=== PATIENT | female | born 2000 | race Caucasian/White ===

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

== ENCOUNTER 2019-08-01 08:00 | Outpatient (CLI) | payer MEDICAID | END 2019-08-01 23:59 | disposition home or self-care (01) | LOC: LAB.R 08:00 | PROVIDERS: ATTEND Registered Nurse | DX: R39.15 Urgency of urination (principal) | CPT/HCPCS: 87077; 87086; 87181 ==

== ENCOUNTER 2019-08-08 08:00 | Outpatient (CLI) | payer MEDICAID | END 2019-08-08 23:59 | disposition home or self-care (01) | LOC: LAB.R 08:00 | PROVIDERS: ATTEND Registered Nurse | DX: R39.15 Urgency of urination (principal) | CPT/HCPCS: 87086 ==

== ENCOUNTER 2022-07-11 13:54 | Outpatient (CLI) | payer MEDICAID | END 2022-07-11 13:55 | disposition home or self-care (01) | LOC: LAB.S 13:54 | PROVIDERS: ATTEND Psychiatry & Neurology Neurology | DX: G40.909 Epilepsy, unspecified, not intractable, without status epilepticus (principal) | CPT/HCPCS: 80177 ==

== ENCOUNTER 2022-08-08 08:14 | Outpatient (CLI) | payer MEDICAID | END 2022-08-08 08:15 | disposition EMS.NT | LOC: EMS 08:14 | DX: R56.9 Unspecified convulsions (principal) ==

== ENCOUNTER 2022-09-26 13:17 | Outpatient (CLI) | payer MEDICAID | END 2022-09-26 13:18 | disposition home or self-care (01) | LOC: LAB.S 13:17 | PROVIDERS: ATTEND Psychiatry & Neurology Neurology | DX: G40.909 Epilepsy, unspecified, not intractable, without status epilepticus (principal) | CPT/HCPCS: 36415; 80177 ==

== ENCOUNTER 2022-10-30 10:00 | Outpatient (CLI) | payer MEDICAID | END 2022-10-30 10:01 | disposition home or self-care (01) | LOC: LAB.S 10:00 | PROVIDERS: ATTEND Psychiatry & Neurology Neurology | DX: G40.909 Epilepsy, unspecified, not intractable, without status epilepticus (principal) | CPT/HCPCS: 36415; 80177 ==

== ENCOUNTER 2023-05-22 07:00 | Outpatient (CLI) | payer MEDICAID | END 2023-05-22 23:59 | disposition home or self-care (01) | LOC: LAB.S 07:00 | PROVIDERS: ATTEND Physician Assistant | DX: N39.0 Urinary tract infection, site not specified (principal) | CPT/HCPCS: 87086 ==

== ENCOUNTER 2023-06-03 23:31 | Emergency (ER) | payer MEDICAID ==
[2023-06-04 00:28] LABS: MUDS CUTOFF CONCENTRATIONS CUTOFF CONC BELOW:
[2023-06-04 00:29] LABS: BILIRUBIN,URINE NEGATIVE (NEGATIVE); GLUCOSE, URINE (UA) NEGATIVE (NEGATIVE); KETONES,URINE (UA) NEGATIVE (NEGATIVE); LEUKOCYTE ESTERASE, URINE NEGATIVE (NEGATIVE); NITRITE,URINE NEGATIVE (NEGATIVE); OCCULT BLOOD,URINE TRACE-INTA (NEGATIVE); PROTEIN,URINE NEGATIVE (NEGATIVE); UROBILINOGEN,URINE 0.2 (NORMAL) E.U./dL (NORMAL)
[2023-06-04] MEDS ORDERED: SODIUM CHLORIDE 0.9% 1,000 ML IV STA (00:33)
[2023-06-04 00:40] LABS: VBG BASE EXCESS -4.2 mmol/L (-2 - +2); VBG HCO3 19.6 mmol/L (23-28); VBG OXYGEN SATURATION 93.1 % (60-80); VBG PCO2 32.9 mmHg (41-51); VBG PH 7.394 (7.31-7.41); VBG TOTAL CO2 20.7 mmol/L (24-29)
[2023-06-04 00:41] LABS: CLARITY,URINE CLEAR (CLEAR); HCG UR QUAL NEGATIVE
[2023-06-04 00:42] LABS: INR 1.2 (0.8-1.2); PT - PROTHROMBIN TIME 12.7 secs (9.9-12.6)
[2023-06-04 00:43] LABS: BASOPHILS % (AUTO) 0.4 %; HCT - HEMATOCRIT 42.3 % (37.0-47.0); HGB - HEMOGLOBIN 13.8 g/dL (12.0-16.0); LYMPHOCYTES # (AUTO) 0.5 10^3/uL (1.5-3.5); LYMPHOCYTES % (AUTO) 11.4 %; MEAN CORPUSCULAR HEMOGLOBIN 27.4 pg (27.0-31.0); MEAN CORPUSCULAR HGB CONC 32.6 g/dL (32.0-36.0); MEAN CORPUSCULAR VOLUME 83.9 fL (81.0-99.0); MEAN PLATELET VOLUME 9.5 fL (7.9-10.8); MONOCYTES # (AUTO) 0.3 10^3/uL (0.0-1.0); MONOCYTES % (AUTO) 7.4 %; NEUTROPHILS # (AUTO) 3.6 10^3/uL (1.5-6.6); NEUTROPHILS % (AUTO) 80.4 %; PLT - PLATELET COUNT 182 10^3/uL (130-450); RED BLOOD COUNT 5.04 10^6/uL (4.20-5.40); RED CELL DISTRIBUTION WIDTH 12.7 % (12.0-15.0); WHITE BLOOD COUNT 4.5 x10^3/uL (4.8-10.8)
[2023-06-04 00:44] LABS: AMPHETAMINE SCREEN,URINE NEGATIVE (NEGATIVE); BARBITURATE SCREEN,UR NEGATIVE (NEGATIVE); BENZODIAZEPINES SCREEN, URINE NEGATIVE (NEGATIVE); COCAINE SCREEN URINE NEGATIVE (NEGATIVE); METHADONE SCREEN, URINE NEGATIVE (NEGATIVE); METHAMPHETAMINES SCREEN, URINE NEGATIVE (NEGATIVE); OPIATE SCREEN, URINE NEGATIVE (NEGATIVE); OXYCODONE SCREEN, URINE NEGATIVE (NEGATIVE); PROPOXYPHENE SCREEN, URINE NEGATIVE (NEGATIVE); THC CANNABINOID SCREEN, URINE POSITIVE (NEGATIVE); TRICYCLIC ANTIDEPRESSANT,URINE NEGATIVE (NEGATIVE)
[2023-06-04 00:55] LABS: ALBUMIN 4.2 g/dL (3.2-5.5); ALBUMIN/GLOBULIN RATIO 1.4 (1.0-2.2); ALKALINE PHOSPHATASE 64 IU/L (42-121); ALT ALANINE AMINOTRANSFERASE 19 IU/L (10-60); AST ASPARTATE AMINOTRANSFERASE 25 IU/L (10-42); BILIRUBIN,TOTAL 0.3 mg/dL (0.2-1.0); BUN - BLOOD UREA NITROGEN 6 mg/dL (6-20); CALCIUM 9.1 mg/dL (8.5-10.3); CARBON DIOXIDE - CO2 23 mmol/L (21-32); CHLORIDE 105 mmol/L (101-111); CREATININE 0.5 mg/dL (0.6-1.3); ETOH - ETHANOL < 10.0 mg/dL; GFR - MDRD 153 (>89); GLUCOSE 126 mg/dL (74-104); LIPASE 62 U/L (11-82); MAGNESIUM 1.7 mg/dL (1.7-2.3); POTASSIUM 3.6 mmol/L (3.5-4.5); SODIUM 135 mmol/L (135-145); TOTAL PROTEIN 7.2 g/dL (6.4-8.9)
--- NOTE | 2023-06-04 01:30 | ED Physician Documentation ---
History of Present Illness - Stated complaint Stated Complaint: EXTREMITIES TINGLING/BACK PX/FEVER - Chief complaint Chief Complaint: Back Pain - Additonal information Additional information: Patient 22-year-old female presenting to the emergency department with fever, back pain, numbness tingling in her upper extremities. Past medical significant for cerebral palsy. Recently treated for urinary tract infection and reports that her symptoms of dysuria and frequency have resolved. Has been having symptoms of low back pain with tingling in her fingers and toes and face x1 day. Temperature high 104 at home. No cough, congestion or known sick contacts. Denies chest or abdominal pain. Denies saddle paresthesias, loss of bowel or bladder control. Reports chronic decreased sensation around the right side of her body unchanged from baseline. Review of Systems Constitutional: reports: Fever Eyes: denies: Loss of vision Ears: denies: Loss of hearing Nose: denies: Rhinorrhea / runny nose Throat: denies: Dental pain / toothache Cardiac: denies: Chest pain / pressure Respiratory: denies: Dyspnea GI: denies: Abdominal Pain : denies: Dysuria Skin: denies: Rash Musculoskeletal: reports: Back pain Neurologic: reports: Numbness PD PAST MEDICAL HISTORY - Past Medical History Past Medical History: Yes Neuro: Cerebral palsy, Seizure disorder - Past Surgical History Past Surgical History: Yes - Present Medications Home Medications: Ambulatory Orders Medication Instructions Recorded Confirmed Escitalopram [Lexapro] 10 mg PO DAILY 06/04/23 06/04/23 Levetiracetam [Keppra] 1,500 mg PO DAILY 06/04/23 06/04/23 - Allergies Allergies/Adverse Reactions: Allergies Allergy/AdvReac Type Severity Reaction Status Date / Time azithromycin [From Zithromax] Allergy Rash Verified 06/03/23 23:45 - Social History Does the pt smoke?: No Smoking Status: Never smoker Does the pt drink ETOH?: No - Immunizations Immunizations are current?: Yes - POLST Patient has POLST: No PD ED PE NORMAL - Vitals Vital signs reviewed: Yes (Tachycardic) - General General: Alert and oriented X 3 - HEENT HEENT: Atraumatic, PERRL, EOMI, Ears normal, Moist mucous membranes, Pharynx benign - Neck Neck: Supple, no meningeal sign, No bony TTP, No adenopathy, Thyroid normal, No JVD, No bruit, C-Spine cleared by NEXUS criteria - Cardiac Cardiac: RRR, No murmur, No gallop, No rub - Respiratory Respiratory: No respiratory distress - Abdomen Abdomen: Normal bowel sounds - Female Female : Deferred - Rectal Rectal: Deferred - Back Back: Other (Tenderness to the lumbar paraspinal muscles.) - Derm Derm: Normal color - Extremities Extremities: No deformity - Neuro Neuro: Alert and oriented X 3, clearance coordinator 2-12 intact, Normal speech. No: No motor deficit, No sensory deficit Results - Vitals Vitals: Vital Signs - 24 hr 06/03/23 06/04/23 06/04/23 23:40 00:37 01:40 Temperature 37.3 C 36.8 C Heart Rate 124 H 87 75 Respiratory 18 21 15 Rate Blood Pressure 138/75 H 117/82 H 119/69 O2 Saturation 97 99 97 06/04/23 03:01 Temperature 36.9 C Heart Rate 85 Respiratory 20 Rate Blood Pressure 105/69 O2 Saturation 98 Oxygen O2 Source Room air - EKG (time done) 0000 EKG releavant findings:: EKG personally interpreted by author of this note. Relevant findings are: Sinus rhythm with rate 94 bpm. Normal axis. Normal CA, QRS, QTc intervals. No ST segment elevations or T wave inversions. - Labs Labs: Laboratory Tests 06/03/23 06/03/23 06/04/23 23:55 23:55 00:21 WBC 4.5 L RBC 5.04 Hgb 13.8 Hct 42.3 MCV 83.9 MCH 27.4 MCHC 32.6 RDW 12.7 Plt Count 182 MPV 9.5 Neut # (Auto) 3.6 Lymph # (Auto) 0.5 L [place] # (Auto) 0.3 Eos # (Auto) 0.0 Baso # (Auto) 0.0 Absolute Nucleated RBC 0.00 Nucleated RBC % 0.0 ESR PT INR VBG pH VBG pCO2 VBG pO2 VBG HCO3 VBG Total CO2 VBG O2 Saturation VBG Base Excess Sodium Potassium Chloride Carbon Dioxide Anion Gap BUN Creatinine Estimated GFR (MDRD) Glucose Lactic Acid Calcium Magnesium Total Bilirubin AST ALT Alkaline Phosphatase Total Protein Albumin Globulin Albumin/Globulin Ratio Lipase Urine Color YELLOW Urine Clarity CLEAR Urine pH 7.0 Ur Specific [place] <=1.005 Urine Protein NEGATIVE Urine Glucose (UA) NEGATIVE Urine Ketones NEGATIVE Urine Occult Blood TRACE-INTA Urine Nitrite NEGATIVE Urine Bilirubin NEGATIVE Urine Urobilinogen 0.2 (NORMAL) Ur Leukocyte Esterase NEGATIVE Ur Microscopic Review NOT INDICATED Urine Culture Comments NOT INDICATED Urine HCG, Qual NEGATIVE Nasal Adenovirus (PCR) NOT DETECTED Nasal B. parapertussis DNA (PCR) NOT DETECTED Nasal Coronavir 229E PCR NOT DETECTED Nasal Coronavir HKU1 PCR NOT DETECTED Nasal Coronavir NL63 PCR NOT DETECTED Nasal Coronavir OC43 PCR NOT DETECTED Nasal Enterovir/Rhinovir PCR NOT DETECTED Nasal Influenza B PCR NOT DETECTED Nasal Influenza A PCR NOT DETECTED Nasal Parainfluen 1 PCR NOT DETECTED Nasal Parainfluen 2 PCR NOT DETECTED Nasal Parainfluen 3 PCR NOT DETECTED Nasal Parainfluen 4 PCR NOT DETECTED Nasal RSV (PCR) NOT DETECTED Nasal B.pertussis DNA PCR NOT DETECTED Nasal C.pneumoniae (PCR) NOT DETECTED Iron Human Metapneumo PCR NOT DETECTED Nasal M.pneumoniae (PCR) NOT DETECTED Nasal SARS-CoV-2 (PCR) NOT DETECTED Urine Opiates Screen NEGATIVE Ur Oxycodone Screen NEGATIVE Urine Methadone Screen NEGATIVE Ur Propoxyphene Screen NEGATIVE Ur Barbiturates Screen NEGATIVE Ur Tricyclics Screen NEGATIVE Ur Phencyclidine Scrn NEGATIVE Ur Amphetamine Screen NEGATIVE U Methamphetamines Scrn NEGATIVE U Benzodiazepines Scrn NEGATIVE Urine Cocaine Screen NEGATIVE U Cannabinoids Screen POSITIVE H Ethyl Alcohol 06/04/23 06/04/23 06/04/23 00:21 00:21 00:21 WBC RBC Hgb Hct MCV MCH MCHC RDW Plt Count MPV Neut # (Auto) Lymph # (Auto) [place] # (Auto) Eos # (Auto) Baso # (Auto) Absolute Nucleated RBC Nucleated RBC % ESR PT 12.7 H INR 1.2 VBG pH VBG pCO2 VBG pO2 VBG HCO3 VBG Total CO2 VBG O2 Saturation VBG Base Excess Sodium 135 Potassium 3.6 Chloride 105 Carbon Dioxide 23 Anion Gap 7.0 BUN 6 Creatinine 0.5 L Estimated GFR (MDRD) 153 Glucose 126 H Lactic Acid 1.2 Calcium 9.1 Magnesium 1.7 Total Bilirubin 0.3 AST 25 ALT 19 Alkaline Phosphatase 64 Total Protein 7.2 Albumin 4.2 Globulin 3.0 Albumin/Globulin Ratio 1.4 Lipase 62 Urine Color Urine Clarity Urine pH Ur Specific [place] Urine Protein Urine Glucose (UA) Urine Ketones Urine Occult Blood Urine Nitrite Urine Bilirubin Urine Urobilinogen Ur Leukocyte Esterase Ur Microscopic Review Urine Culture Comments Urine HCG, Qual Nasal Adenovirus (PCR) Nasal B. parapertussis DNA (PCR) Nasal Coronavir 229E PCR Nasal Coronavir HKU1 PCR Nasal Coronavir NL63 PCR Nasal Coronavir OC43 PCR Nasal Enterovir/Rhinovir PCR Nasal Influenza B PCR Nasal Influenza A PCR Nasal Parainfluen 1 PCR Nasal Parainfluen 2 PCR Nasal Parainfluen 3 PCR Nasal Parainfluen 4 PCR Nasal RSV (PCR) Nasal B.pertussis DNA PCR Nasal C.pneumoniae (PCR) Iron Human Metapneumo PCR Nasal M.pneumoniae (PCR) Nasal SARS-CoV-2 (PCR) Urine Opiates Screen Ur Oxycodone Screen Urine Methadone Screen Ur Propoxyphene Screen Ur Barbiturates Screen Ur Tricyclics Screen Ur Phencyclidine Scrn Ur Amphetamine Screen U Methamphetamines Scrn U Benzodiazepines Scrn Urine Cocaine Screen U Cannabinoids Screen Ethyl Alcohol < 10.0 06/04/23 06/04/23 00:21 00:21 WBC RBC Hgb Hct MCV MCH MCHC RDW Plt Count MPV Neut # (Auto) Lymph # (Auto) [place] # (Auto) Eos # (Auto) Baso # (Auto) Absolute Nucleated RBC Nucleated RBC % ESR 78 H PT INR VBG pH 7.394 VBG pCO2 32.9 L VBG pO2 64.0 H VBG HCO3 19.6 L VBG Total CO2 20.7 L VBG O2 Saturation 93.1 H VBG Base Excess -4.2 L Sodium Potassium Chloride Carbon Dioxide Anion Gap BUN Creatinine Estimated GFR (MDRD) Glucose Lactic Acid Calcium Magnesium Total Bilirubin AST ALT Alkaline Phosphatase Total Protein Albumin Globulin Albumin/Globulin Ratio Lipase Urine Color Urine Clarity Urine pH Ur Specific [place] Urine Protein Urine Glucose (UA) Urine Ketones Urine Occult Blood Urine Nitrite Urine Bilirubin Urine Urobilinogen Ur Leukocyte Esterase Ur Microscopic Review Urine Culture Comments Urine HCG, Qual Nasal Adenovirus (PCR) Nasal B. parapertussis DNA (PCR) Nasal Coronavir 229E PCR Nasal Coronavir HKU1 PCR Nasal Coronavir NL63 PCR Nasal Coronavir OC43 PCR Nasal Enterovir/Rhinovir PCR Nasal Influenza B PCR Nasal Influenza A PCR Nasal Parainfluen 1 PCR Nasal Parainfluen 2 PCR Nasal Parainfluen 3 PCR Nasal Parainfluen 4 PCR Nasal RSV (PCR) Nasal B.pertussis DNA PCR Nasal C.pneumoniae (PCR) Iron Human Metapneumo PCR Nasal M.pneumoniae (PCR) Nasal SARS-CoV-2 (PCR) Urine Opiates Screen Ur Oxycodone Screen Urine Methadone Screen Ur Propoxyphene Screen Ur Barbiturates Screen Ur Tricyclics Screen Ur Phencyclidine Scrn Ur Amphetamine Screen U Methamphetamines Scrn U Benzodiazepines Scrn Urine Cocaine Screen U Cannabinoids Screen Ethyl Alcohol PD Medical Decision Making - ED course Complexity details: reviewed old records, reviewed results, re-evaluated patient, considered differential, d/w patient, d/w family ED course: Patient 22-year-old female presenting to the emergency department with report of fever, back pain, paresthesias in upper and lower extremities and face. Afebrile but tachycardic on arrival to the emergency department. Has a past medical significant for cerebral palsy and reports some persistent sensory deficits along the right side of her body. Is ordinarily either walker or wheelchair bound. Some tenderness to palpation to the lower lumbar paraspinal muscles. No notable specific point tenderness to the spine in this area. Labs demonstrated a Leukopenia as well as an elevated ESR. Urine studies were benign. The remainder of her labs were benign. CT of the abdomen pelvis did demonstrate some thickening of the bladder wall consistent with cystitis however patient recently treated for urinary tract infection and I believe that this is sequela I to a previous urinary tract in infection. Overall the presence of fever, back pain As well as her history of cerebral palsy did make me concern for possible osteomyelitis. Less likely though also considered in the differential are somewhat atypical such as Casanova Kwon variant Guillain-Hernandez. Discussed my concerns directly with the patient and patient's family. Initially made a plan for MRI in the morning to rule out osteomyelitis of the spine. Patient however reported that she was feeling better and requested discharge. I expressed my concern about the possibility of missed or delayed diagnosis. She verbalized understanding of this and reported that if her symptoms returned or worsen she would return. Clear and explicit return precautions given prior to discharge. Departure - Departure Disposition: 01 Home, Self Care Clinical Impression: Elevated erythrocyte sedimentation rate Back pain Qualifiers: Back pain location: low back pain Chronicity: acute Back pain laterality: unspecified Sciatica presence: without sciatica Qualified Code(s): M54.50 - Low back pain, unspecified Fever Qualifiers: Fever type: unspecified Qualified Code(s): R50.9 - Fever, unspecified Leukopenia Qualifiers: Leukopenia type: unspecified Qualified Code(s): D72.819 - Decreased white blood cell count, unspecified Instructions: ED Fever Unconf Cause Comments: Thank you for allowing us the opportunity to care for you today at [facility]. Today in the emergency department your evaluated for any possible dangerous or life-threatening medical emergency. As we discussed overall many of your tests were very reassuring however you did have a slightly low white blood cell count which can often be caused by infection as well as an elevated inflammatory marker which can also indicate underlying infection. The reported fever and back pain did cause me some concern that the source of infection could be in your back and I know we discussed performing an MRI here in the emergency department in order to definitively rule this out. You have decided to leave prior to completion of the study and so I cannot tell you definitively that this is not a source of infection. It is very important that you follow-up with your primary care doctor concerning your ER visit as soon as possible. It is also extremely important that you return to the emergency department if you are having ongoing back pain, persistent fever, if you develop any numbness or tingling around the anus or genitalia, loss of bowel or bladder control or increased or worsening lower extremity weakness. Forms: PCP List
[2023-06-04] MEDS ORDERED: iohexoL-300 100 ML VIAL IVP ONE (01:41)
[2023-06-04 01:44] LABS: B. PARAPERTUSSIS- RESP PCR PAN NOT DETECTED; B. PERTUSSIS- RESP PCR PANEL NOT DETECTED; C. PNEUMONIAE- RESP PCR PANEL NOT DETECTED; CORONAVIRUS 229E-RESP PCR NOT DETECTED; CORONAVIRUS HKU1-RESP PCR NOT DETECTED; CORONAVIRUS NL63-RESP PCR NOT DETECTED; CORONAVIRUS OC43-RESP PCR NOT DETECTED; HUMAN METAPNEUMOVIRUS NOT DETECTED; INFLUENZA A- RESP PCR PANEL NOT DETECTED; INFLUENZA B - RESP PCR PANEL NOT DETECTED; M. PNEUMONIAE- RESP PCR PANEL NOT DETECTED; PARAINFLUENZA VIRUS 1 NOT DETECTED; PARAINFLUENZA VIRUS 2 NOT DETECTED; PARAINFLUENZA VIRUS 3 NOT DETECTED; PARAINFLUENZA VIRUS 4 NOT DETECTED; RHINOVIRUS/ENTEROVIRUS NOT DETECTED; RSV- RESP PCR PANEL NOT DETECTED; SARS-CoV-2 -RESP PCR PANEL NOT DETECTED
--- NOTE | 2023-06-04 02:34 | CT Report ---
PROCEDURE: ABDOMEN/PELVIS W INDICATIONS: Lower abd and back pain CONTRAST: 100 ML OMNI 300 TECHNIQUE: After the administration of intravenous contrast, 5 mm thick sections acquired from the diaphragms to the symphysis. 5 mm thick coronal and sagittal reformats were acquired. For radiation dose reducti on, the following was used: automated exposure control, adjustment of mA and/or kV according to brittani ent size. COMPARISON: None FINDINGS: Image quality: Excellent. Lung bases and heart: Unremarkable. Liver: No solid mass. Gallbladder and biliary tree: Decompressed gallbladder. No calcifications. Nondilated biliary tree. Spleen: No splenomegaly. Pancreas: No pancreatic ductal dilation. Adrenals: No adrenal nodule. Kidneys and ureters: Symmetric enhancement. No hydronephrosis or nephrolithiasis. No solid mass or cy st requiring follow-up. Bowel and peritoneum: Stomach and small bowel are normal. Normal appendix. Increased quantity of stoo l present throughout colon. Lymph nodes: No central or retroperitoneal adenopathy. Vessels: No infrarenal aortic aneurysm. PELVIS Reproductive organs: The uterus is present. Ovaries are not well seen. Bladder: Partially decompressed, but extensive uniform wall thickening. No visible stone. Pelvic lymph nodes: No pelvic adenopathy by size criteria. Bones: Partially imaged hardware in both proximal femurs. No suspicious bone lesions. Other: No significant ventral or inguinal hernia. IMPRESSION: 1. Uniform urinary bladder wall thickening suggesting cystitis. 2. No CT evidence of acute pyelonephritis or urinary obstruction.. Reviewed by: Latha Posadas MD on 06/04/2023 2:33 AM PDT Approved by: Latha Posadas MD on 06/04/2023 2:33 AM PDT Station ID: [id number]
[2023-06-04 04:12] VITALS: BP 124/72; O2SAT 99
--- NOTE | 2023-06-05 17:42 | ED Physician Documentation ---
ED Addendum - Addendum Addendum: 06/05/23 17:41 The patient's blood cultures came back today showing 1 positive for staph species coagulase-negative staphylococci. The second blood culture was negative. Review of the patient's clinical chart showed actually no fever normal white count and no identified source of infection with a report of fever at home. This would be a very common contaminant and at this point would presume a contaminant and not treat the culture.
== END 2023-06-04 03:52 | disposition home or self-care (01) ==
LOC: ED 23:31
DX: M54.50 Low back pain, unspecified (principal); R50.9 Fever, unspecified; D72.819 Decreased white blood cell count, unspecified; R70.0 Elevated erythrocyte sedimentation rate; Z20.822 Contact with and (suspected) exposure to COVID-19
CPT/HCPCS: 36415; 74177; 80053; 80306; 80320; 81003; 81025; 82803; 83605; 83690; 83735; 85025; 85610; 85651; 87040; 87150; 87633; 93005; 99284; Q9967; 81001; 87077; 87086; 87181

== ENCOUNTER 2023-12-03 08:02 | Outpatient (CLI) | payer MEDICAID | END 2023-12-03 08:03 | disposition home or self-care (01) | LOC: LAB.S 08:02 | PROVIDERS: ATTEND Psychiatry & Neurology Neurology | DX: G40.909 Epilepsy, unspecified, not intractable, without status epilepticus (principal) | CPT/HCPCS: 36415; 80177 ==